=== PATIENT | female | born 1980 ===

== ENCOUNTER 2020-09-12 10:45 | Emergency (ER) | payer SELFPAY ==
[2020-09-12 12:07] LABS: Bacteria,Urine 1+ /HPF (Negative); Bilirubin,Urine NEG (Negative); Blood,Urine LG (Negative); Color,Urine Red (Yellow); Mucus,Urine FEW /HPF; Urobilinogen,Urine < 2.0 mg/dL (<2.0)
--- NOTE | 2020-09-12 12:13 | Emergency Department Report ---
ED General Adult HPI - General Chief complaint: Vaginal Bleeding Stated complaint: 10 WEEKS , VAGINAL BLEEDING Time Seen by Provider: 09/12/20 11:55 Source: patient, family Mode of arrival: Wheelchair Limitations: No Limitations - History of Present Illness Initial comments: 39-year-old female (; 10 weeks gestation by dates) patient presents to the emergency department with complaints of vaginal bleeding starting 2 days ago. Patient describes the bleeding as "spotting." She has not used any pads or tampons today. She did notice one episode of painless vaginal bleeding upon waking today. This was not associated with using the bathroom. Patient's last progressed to full-term without complications. She has not seen an debone supervisor or undergone sonography during this . She has not been taking any vitamins. She does not currently have an OB appointment scheduled. There has been no recent fall, trauma, or injury. Denies fever, chills, chest pain, shortness breath, palpitations, syncope, abdominal pain, pelvic pain, back pain, urinary symptoms. Denies all other complaints at this time. - Related Data Allergies Allergy/AdvReac Type Severity Reaction Status Date / Time No Known Allergies Allergy Verified 09/12/20 10:55 ED Review of Systems ROS: Stated complaint: 10 WEEKS , VAGINAL BLEEDING Other details as noted in HPI Other: GENERAL: Negative for fever, chills, weight change, anorexia, fatigue. ENT: Negative for ear pain, difficulty hearing, sore throat, nasal congestion, epistaxis. CARDIOVASCULAR: Negative for chest pain, palpitations, lower extremity swelling. PULMONARY: Negative for cough, dyspnea, wheezing, orthopnea, cyanosis. GASTROINTESTINAL: Negative for abdominal pain, nausea, vomiting, diarrhea, constipation. GENITOURINARY: Positive for vaginal bleeding. MUSCULOSKELETAL: Negative for joint pain, joint swelling, myalgias, back pain, n raine pain. NEUROLOGICAL: Negative for headache, seizure, syncope, paresthesias, weakness. INTEGUMENTARY: Negative for erythema, rash, diaphoresis, laceration, ecchymosis. HEMATOLOGICAL: Negative for hemoptysis, hematemesis, hematochezia, hematuria. PSYCHIATRIC: Negative for hallucinations, suicidal ideation, homicidal ideation, anxiety, depression. ED Past Medical Hx - Social History Smoking Status: Never Smoker Substance Use Type: None ED Physical Exam - General Limitations: No Limitations - Other Other exam information: General: Awake and alert. No acute distress. Head: Atraumatic, normocephalic. Eyes: EOMI. Pupils are equal and round. Normal sclera and conjunctiva. ENT: Oral mucosa is moist. Normal pharyngeal exam. Neck: Supple. No lymphadenopathy. Pulmonary: No respiratory distress. Clear to auscultation bilaterally. Cardiac: Regular rate and rhythm. Pulses are palpable and equal bilaterally. No lower extremity cyanosis or edema. Skin: Warm and dry. No rashes. Abdomen: Soft, non-tender, non-protuberant. No guarding, rigidity, or rebound. Bowel sounds are normal. No organomegaly or masses noted. Pelvic: Female chief substation operator (ISAIAS Farris) present. Normal external inspection. Cervical os is closed. There is no cervical motion tenderness. Minimal amount of blood in the vaginal vault. No discharge. No adnexal tenderness or masses. No uterine tenderness. Back: Normal alignment. No CVA tenderness. Extremities: Symmetrical. Full range of motion intact. Neurological: Alert and oriented, appropriately interactive, no focal deficits. Psych: Cooperative. Appropriate mood and affect. Speech is evenly metered. Thoughts are logically construed. ED Course Vital Signs 09/12/20 09/12/20 10:53 15:33 Temperature 98.6 F Pulse Rate 82 89 Respiratory 14 Rate Blood Pressure 143/85 Blood Pressure 138/86 [Right] O2 Sat by Pulse 100 Oximetry ED Medical Decision Making - Lab Data Result diagrams: 09/12/20 11:55 09/12/20 11:55 - Radiology Data [facility] [address] [place] [address] Ultrasound Report Signed Patient: CASPER IZQUIERDO MR#: [id number] : 1980 Acct:[id number] Age/Sex: 39 / F ADM Date: 09/12/20 Loc: ED Attending Dr: Ordering Physician: ANALISA CARTER Date of Service: 09/12/20 Procedure(s): US OB transvaginal Accession Number(s): [id number] cc: ANALISA CARTER ULTRASOUND OBSTETRIC INDICATION / CLINICAL INFORMATION: vaginal bleeding; 10 weeks by dates. Clinical Gestational Age (GA) in weeks, days: 9, 2 TECHNIQUE: Transabdominal and Transvaginal. COMPARISON: None available. FINDINGS: GESTATIONAL SAC: Well-defined oval shape and intrauterine in location. YOLK SAC: Not visualized EMBRYO/FETUS: An oval structure is noted within the gestational sac and appears to be a pole. No heartbeat is identified. - [place]-Rump Length = 13 cm = 7, 3 weeks, days - Heart Rate, beats per minute (if present) = no heartbeat is identified ADNEXA: No significant abnormality. There is a 1.3 cm cyst in the left ovary. FREE FLUID: None. ADDITIONAL FINDINGS: There is a 2.6 x 0.4 x 1.1 cm subchorionic bleed. IMPRESSION: 1. Intrauterine is identified. No heartbeat is identified. [place]-rump length measurements correlate with a 7 week 3 day gestation. Correlation with serum beta hCG levels recommended. I suspect that this represents demise. Signer Name: Chano Carroll MD Signed: 09/12/2020 2:00 PM Workstation Name: [id number] Transcribed By: Dictated By: Chano Carroll MD Electronically Authenticated By: Chano Carroll MD Signed Date/Time: 09/12/20 1400 DD/ 1357 TD/TT: - Medical Decision Making Differential diagnosis including but not limited to: ectopic , implantation bleed, threatened , septic , urinary tract infection, molar , uterine fibroid On reevaluation, patient remains stable. Hemoglobin is within normal limits. No clinical evidence to suggest hemorrhagic shock. Beta hCG is 3934. Urinalysis shows hematuria without evidence of infection. Patient is Rh (+). Ultrasound shows subchorionic bleed and [place]-rump length correlating to 7-week, 3-day gestation . No heart tones identified. Sonographic findings concerning for demise. Cervical os is closed on examination. Patient has not been evaluated by an debone supervisor at any point during her . Case was discussed with Dr. Stephens, debone supervisor, who agrees to evaluate patient in his office later this week for repeat blood work and sonogram. No clinical indication for further diagnostic work-up on an emergent basis at this time. Patient will be discharged home with a copy of today's ultrasound results and referral to debone supervisor's office. Emphasized the importance of calling the office today to schedule follow-up appointment. Patient expressed understanding and is agreeable to plan of care. Strict return precautions provided. Repeat exam is unremarkable and benign. History, exam, diagnostic testing, and current condition do not suggest worrisome pathology to warrant further testing, continued ED treatment, admission, or surgical evaluation at this point. Given the low probability of a significant medical illness, it would be more likely to result in harm than benefit to perform further testing at this stage. Discussed findings, presumptive diagnosis, need for follow-up and specific signs/symptoms that should prompt immediate return to the emergency department. Instructions were explained in detail to the patient in addition to giving written discharge information. Patient expressed understanding and was given the opportunity to ask questions, all of which were satisfactorily answered prior to discharge home. Critical care attestation.: If time is entered above; I have spent that time in minutes in the direct care of this critically ill patient, excluding procedure time. ED Disposition Clinical Impression: Threatened Subchorionic bleed Qualifiers: Fetus number: single or unspecified fetus Trimester: first trimester Qualified Code(s): O41.8X10 - Other specified disorders of amniotic fluid and membranes, first trimester, not applicable or unspecified Disposition: DC-01 TO HOME OR SELFCARE Is pt being admited?: No Does the pt Need Aspirin: No Condition: Stable Instructions: Threatened Miscarriage, Vaginal Bleeding During , First Trimester Additional Instructions: Take Tylenol every 4 hours as needed for pain. Rest. Drink plenty of fluids. Follow-up with Dr. Gilmore, debone supervisor, this week. Call today to schedule an appointment. See referral information below. Return to the emergency department immediately for new or worsening symptoms. Specifically, return to the emergency department immediately for fever, a bdominal pain, worsening vaginal bleeding, dehydration, mental status changes, shortness of breath, or any other concerns. Referrals: CHRIS GILMORE MD [Staff Physician] - 3-5 Days Time of Disposition: 15:22
[2020-09-12 12:35] LABS: Eosinophils % (Auto) 0.9 % (0.0-4.3); Hemoglobin 12.9 gm/dl (10.1-14.3); Lymphocytes # (Auto) 1.5 K/mm3 (1.2-5.4); Lymphocytes % (Auto) 35.3 % (13.4-35.0); Mean Corpuscular HGB Conc 33 % (30-34); Mean Corpuscular Volume 94 fl (79-97); Monocytes # (Auto) 0.3 K/mm3 (0.0-0.8); Monocytes % (Auto) 5.8 % (0.0-7.3); Platelet Count 228 K/mm3 (140-440); Red Blood Count 4.17 M/mm3 (3.65-5.03); Red Cell Distribution Width 12.7 % (13.2-15.2)
[2020-09-12 12:52] LABS: Alanine Aminotransferase 19 units/L (7-56); Albumin 4.7 g/dL (3.9-5); Blood Urea Nitrogen 6 mg/dL (7-17); Calcium 9.7 mg/dL (8.4-10.2); Hemolysis Index 2
[2020-09-12 13:20] LABS: BUN/Creatinine Ratio 12
--- NOTE | 2020-09-12 14:04 | Ultrasound Report ---
ULTRASOUND OBSTETRIC INDICATION / CLINICAL INFORMATION: vaginal bleeding; 10 weeks by dates. Clinical Gestational Age (GA) in weeks, days: 9, 2 TECHNIQUE: Transabdominal and Transvaginal. COMPARISON: None available. FINDINGS: GESTATIONAL SAC: Well-defined oval shape and intrauterine in location. YOLK SAC: Not visualized EMBRYO/FETUS: An oval structure is noted within the gestational sac and appears to be a pole. N o heartbeat is identified. - [place]-Rump Length = 13 cm = 7, 3 weeks, days - Heart Rate, beats per minute (if present) = no heartbeat is identified ADNEXA: No significant abnormality. There is a 1.3 cm cyst in the left ovary. FREE FLUID: None. ADDITIONAL FINDINGS: There is a 2.6 x 0.4 x 1.1 cm subchorionic bleed. IMPRESSION: 1. Intrauterine is identified. No heartbeat is identified. [place]-rump length measurem ents correlate with a 7 week 3 day gestation. Correlation with serum beta hCG levels recommended. I s uspect that this represents demise. Signer Name: Chano Carroll MD Signed: 09/12/2020 2:00 PM Workstation Name: [id number]
--- NOTE | 2020-09-12 14:04 | Ultrasound Report ---
ULTRASOUND OBSTETRIC INDICATION / CLINICAL INFORMATION: vaginal bleeding; 10 weeks by dates. Clinical Gestational Age (GA) in weeks, days: 9, 2 TECHNIQUE: Transabdominal and Transvaginal. COMPARISON: None available. FINDINGS: GESTATIONAL SAC: Well-defined oval shape and intrauterine in location. YOLK SAC: Not visualized EMBRYO/FETUS: An oval structure is noted within the gestational sac and appears to be a pole. N o heartbeat is identified. - [place]-Rump Length = 13 cm = 7, 3 weeks, days - Heart Rate, beats per minute (if present) = no heartbeat is identified ADNEXA: No significant abnormality. There is a 1.3 cm cyst in the left ovary. FREE FLUID: None. ADDITIONAL FINDINGS: There is a 2.6 x 0.4 x 1.1 cm subchorionic bleed. IMPRESSION: 1. Intrauterine is identified. No heartbeat is identified. [place]-rump length measurem ents correlate with a 7 week 3 day gestation. Correlation with serum beta hCG levels recommended. I s uspect that this represents demise. Signer Name: Chano Carroll MD Signed: 09/12/2020 2:00 PM Workstation Name: [id number]
[2020-09-12 15:35] VITALS: BP 138/86
== END 2020-09-12 15:35 | disposition home or self-care (01) ==
LOC: ED 10:45
DX: O20.0 Threatened abortion (principal); O41 Other disorders of amniotic fluid and membranes; Z3A.10 10 weeks gestation of pregnancy
CPT/HCPCS: 36415; 76801; 76817; 80053; 81001; 84702; 84703; 85025; 86900; 86901